=== PATIENT | female | born 1940 | race Caucasian/White ===

== ENCOUNTER 2017-02-09 09:53 | Emergency (ER) | payer MEDICARE, BC ==
[2017-02-09] MEDS ORDERED: SODIUM CHLORIDE 0.9% 1,000 ML IV ONE (10:09)
[2017-02-09 10:33] LABS: Basophils % (A) 0 %; CH 30.9; CHCM 33.6; Eosinophils # (A) 0.1 k/uL (0-0.7); Eosinophils % (A) 1 %; HCT 27.5 % (34.0-46.0); HGB 8.9 gm/dL (11.4-16.0); Luc # (Auto) 0.17; Luc % (Auto) 2; Lymphocytes % (A) 9 %; MCH 29.9 pg (25.0-35.0); MCHC 32.4 g/dL (31.0-37.0); MCV 92.4 fL (80.0-100.0); Mean Platelet Volume 8.5; Monocytes # (A) 0.6 k/uL (0-1.0); Monocytes % (A) 5 %; Neutrophils # (A) 9.5 k/uL (1.3-7.7); Neutrophils % (A) 83 %; RBC 2.97 m/uL (3.80-5.40); WBC 11.4 k/uL (3.8-10.6); WBC (Perox) 11.81
--- NOTE | 2017-02-09 10:43 | ED ---
General Adult HPI - General Chief complaint: Altered Mental Status Stated complaint: Altered Mental/A-Fib Time Seen by Provider: 02/09/17 10:09 Source: patient, family, EMS, RN notes reviewed Mode of arrival: EMS - History of Present Illness Initial comments: 76 yo female presents with acute confusion and generalized weakness. Patient is postoperative mitral and aortic valve repair as well as repair of aortic aneurysm. This was approximately 8 days ago. Patient was discharged in stable condition, she's been taking Tylenol for pain. Only past medical history prior to this surgery was hypertension. Patient has been more confused, does complain of a mild headache. The symptoms began this morning. There is no complaint of focal weakness. No vomiting or diarrhea. Patient has had some nausea since the surgery. All she was in the hospital she did have an episode of delirium. This resolved. This was several days ago. Patient has no new chest pain. No abdominal pain. No history of fever. Patient is alert and oriented at the time my evaluation. She does remember the events of the past week although is somewhat slow to respond. - Related Data Home Medications Medication Instructions Recorded Confirmed Atenolol [Tenormin] 25 mg PO BID 12/07/13 10/30/15 Aspirin EC [Ecotrin] 81 mg PO DAILY 10/30/15 10/30/15 amLODIPine [Norvasc] 2.5 mg PO DAILY 10/30/15 10/30/15 Previous Rx's Medication Instructions Recorded Ibuprofen [Motrin] 600 mg PO Q8HR #30 tab 10/30/15 traMADol HCl [Ultram] 100 mg PO Q6H PRN #30 tab 10/30/15 Allergies Allergy/AdvReac Type Severity Reaction Status Date / Time milk AdvReac Cough Verified 02/09/17 10:01 dairy AdvReac Cough Uncoded 02/09/17 10:01 Review of Systems ROS Statement: Those systems with pertinent positive or pertinent negative responses have been documented in the HPI. ROS Other: All systems not noted in ROS Statement are negative. Past Medical History Past Medical History: Hypertension Additional Past Medical History / Comment(s): gout, typhoid fever when 5 years old, arthritis, polyps History of Any Multi-Drug Resistant Organisms: None Reported Past Surgical History: Appendectomy Additional Past Surgical History / Comment(s): bunion removed, mitral and aortic valve repair and ascending aorta repair on 02/01/17. Past Anesthesia/Blood Transfusion Reactions: No Reported Reaction Past Psychological History: No Psychological Hx Reported Smoking Status: Never smoker Past Alcohol Use History: None Reported Past Drug Use History: None Reported - Past Family History Mother Family Medical History: Cancer (Renal cancer ), Coronary Artery Disease (CAD) Additional Family Medical History / Comment(s): stomach CA, heart problems Father Family Medical History: CVA/TIA Additional Family Medical History / Comment(s): of a CVA Brother(s) Family Medical History: Cancer (GI) Sister(s) Family Medical History: Cancer (GI) General Exam General appearance: alert, in no apparent distress Head exam: Present: atraumatic, normocephalic Eye exam: Present: normal appearance, PERRL ENT exam: Present: normal exam, mucous membranes moist Neck exam: Present: normal inspection. Absent: tenderness, meningismus Respiratory exam: Present: normal lung sounds bilaterally. Absent: respiratory distress Cardiovascular Exam: Present: regular rate, irregular rhythm GI/Abdominal exam: Present: soft. Absent: distended, tenderness Extremities exam: Present: normal inspection, normal capillary refill. Absent: pedal edema Neurological exam: Present: alert, oriented X3, CN II-XII intact. Absent: motor sensory deficit Psychiatric exam: Present: normal affect, normal mood Skin exam: Present: warm, dry, intact. Absent: cyanosis, diaphoretic Course Vital Signs 02/09/17 02/09/17 10:01 11:11 Temperature 99.4 F Pulse Rate 93 82 Respiratory 18 18 Rate Blood Pressure 136/92 131/60 O2 Sat by Pulse 98 99 Oximetry EKG Findings - EKG Comments: EKG Findings:: EKG shows sinus rhythm with PACs is a pattern of bigeminy, ventricular rate 88, NH interval 190, QRS duration 82, QTC 486 Medical Decision Making - Medical Decision Making 76 yo female presenting with episode of confusion. This does seem to be resolved at this time. Patient received head CT showed old right lacunar infarct, no acute findings. Chest x-ray shows right pleural effusion which could to the patient's family was previous at the time of discharge. Laboratory studies reveal hemoglobin of 8.9 which is stable. His baseline 8.8. Mild elevation in white blood cell count 11. No signs of urinary tract infection. Troponin is elevated which is likely postsurgical. EKG shows sinus rhythm with premature atrial complexes consistent with bigeminy. Neurologic examination is nonfocal. These findings were discussed with the patient and her family at length. They would prefer to be transferred to [facility]. I do feel this patient will benefit from a neurology consult and MRI. Patient's cardiothoracic surgeon is Dr. Douglass, Cardiology Dr. Guillen Diagnosis: Altered mental status. - Lab Data Result diagrams: 02/09/17 10:05 02/09/17 10:05 Lab Results 02/09/17 02/09/17 02/09/17 Range/Units 10:05 10:05 10:05 WBC 11.4 H (3.8-10.6) k/uL RBC 2.97 L (3.80-5.40) m/uL Hgb 8.9 L (11.4-16.0) gm/dL Hct 27.5 L (34.0-46.0) % MCV 92.4 (80.0-100.0) fL MCH 29.9 (25.0-35.0) pg MCHC 32.4 (31.0-37.0) g/dL RDW 15.0 (11.5-15.5) % Plt Count 165 (150-450) k/uL Neutrophils % 83 % Lymphocytes % 9 % Monocytes % 5 % Eosinophils % 1 % Basophils % 0 % Neutrophils # 9.5 H (1.3-7.7) k/uL Lymphocytes # 1.0 (1.0-4.8) k/uL Monocytes # 0.6 (0-1.0) k/uL Eosinophils # 0.1 (0-0.7) k/uL Basophils # 0.0 (0-0.2) k/uL PT (9.0-12.0) sec INR (<1.2) APTT (22.0-30.0) sec Sodium (137-145) mmol/L Potassium (3.5-5.1) mmol/L Chloride (98-107) mmol/L Carbon Dioxide (22-30) mmol/L Anion Gap mmol/L BUN (7-17) mg/dL Creatinine (0.52-1.04) mg/dL Est GFR (MDRD) Af Amer (>60 ml/min/1.73 sqM) Est GFR (MDRD) Non-Af (>60 ml/min/1.73 sqM) Glucose (74-99) mg/dL Calcium (8.4-10.2) mg/dL Total Bilirubin (0.2-1.3) mg/dL AST (14-36) U/L ALT (9-52) U/L Alkaline Phosphatase (38-126) U/L Ammonia 13 (<30) umol/L Total Creatine Kinase 37 (30-135) U/L CK-MB (CK-2) 1.0 (0.0-2.4) ng/mL CK-MB (CK-2) Rel Index 2.7 Troponin I 0.313 H* (0.000-0.034) ng/mL Total Protein (6.3-8.2) g/dL Albumin (3.5-5.0) g/dL TSH (0.465-4.680) mIU/L Urine Color Urine Appearance (Clear) Urine pH (5.0-8.0) Ur Specific [place] (1.001-1.035) Urine Protein (Negative) Urine Glucose (UA) (Negative) Urine Ketones (Negative) Urine Blood (Negative) Urine Nitrite (Negative) Urine Bilirubin (Negative) Urine Urobilinogen (<2.0) mg/dL Ur Leukocyte Esterase (Negative) Urine RBC (0-5) /hpf Urine WBC (0-5) /hpf Ur Squamous Epith Cells (0-4) /hpf Urine Bacteria (None) /hpf Urine Mucus (None) /hpf Urine Opiates Screen (NotDetected) Ur Oxycodone Screen (NotDetected) Urine Methadone Screen (NotDetected) Ur Propoxyphene Screen (NotDetected) Ur Barbiturates Screen (NotDetected) U Tricyclic Antidepress (NotDetected) Ur Phencyclidine Scrn (NotDetected) Ur Amphetamines Screen (NotDetected) U Methamphetamines Scrn (NotDetected) U Benzodiazepines Scrn (NotDetected) Urine Cocaine Screen (NotDetected) U Marijuana (THC) Screen (NotDetected) 02/09/17 02/09/17 02/09/17 Range/Units 10:05 10:05 10:30 WBC (3.8-10.6) k/uL RBC (3.80-5.40) m/uL Hgb (11.4-16.0) gm/dL Hct (34.0-46.0) % MCV (80.0-100.0) fL MCH (25.0-35.0) pg MCHC (31.0-37.0) g/dL RDW (11.5-15.5) % Plt Count (150-450) k/uL Neutrophils % % Lymphocytes % % Monocytes % % Eosinophils % % Basophils % % Neutrophils # (1.3-7.7) k/uL Lymphocytes # (1.0-4.8) k/uL Monocytes # (0-1.0) k/uL Eosinophils # (0-0.7) k/uL Basophils # (0-0.2) k/uL PT 10.9 (9.0-12.0) sec INR 1.1 (<1.2) APTT 20.0 L (22.0-30.0) sec Sodium 138 (137-145) mmol/L Potassium 4.3 (3.5-5.1) mmol/L Chloride 105 (98-107) mmol/L Carbon Dioxide 22 (22-30) mmol/L Anion Gap 11 mmol/L BUN 22 H (7-17) mg/dL Creatinine 0.83 (0.52-1.04) mg/dL Est GFR (MDRD) Af Amer >60 (>60 ml/min/1.73 sqM) Est GFR (MDRD) Non-Af >60 (>60 ml/min/1.73 sqM) Glucose 100 H (74-99) mg/dL Calcium 8.7 (8.4-10.2) mg/dL Total Bilirubin 0.7 (0.2-1.3) mg/dL AST 23 (14-36) U/L ALT 39 (9-52) U/L Alkaline Phosphatase 79 (38-126) U/L Ammonia (<30) umol/L Total Creatine Kinase (30-135) U/L CK-MB (CK-2) (0.0-2.4) ng/mL CK-MB (CK-2) Rel Index Troponin I (0.000-0.034) ng/mL Total Protein 5.7 L (6.3-8.2) g/dL Albumin 3.1 L (3.5-5.0) g/dL TSH 3.290 (0.465-4.680) mIU/L Urine Color Yellow Urine Appearance Clear (Clear) Urine pH 7.0 (5.0-8.0) Ur Specific [place] 1.010 (1.001-1.035) Urine Protein Negative (Negative) Urine Glucose (UA) Negative (Negative) Urine Ketones Negative (Negative) Urine Blood Negative (Negative) Urine Nitrite Negative (Negative) Urine Bilirubin Negative (Negative) Urine Urobilinogen <2.0 (<2.0) mg/dL Ur Leukocyte Esterase Trace H (Negative) Urine RBC 1 (0-5) /hpf Urine WBC 2 (0-5) /hpf Ur Squamous Epith Cells 2 (0-4) /hpf Urine Bacteria Rare H (None) /hpf Urine Mucus Rare H (None) /hpf Urine Opiates Screen Not Detected (NotDetected) Ur Oxycodone Screen Not Detected (NotDetected) Urine Methadone Screen Not Detected (NotDetected) Ur Propoxyphene Screen Not Detected (NotDetected) Ur Barbiturates Screen Not Detected (NotDetected) U Tricyclic Antidepress Not Detected (NotDetected) Ur Phencyclidine Scrn Not Detected (NotDetected) Ur Amphetamines Screen Not Detected (NotDetected) U Methamphetamines Scrn Not Detected (NotDetected) U Benzodiazepines Scrn Not Detected (NotDetected) Urine Cocaine Screen Not Detected (NotDetected) U Marijuana (THC) Screen Not Detected (NotDetected) Disposition Clinical Impression: Altered mental status Disposition: OTHER INSTITUTION NOT DEFINED Condition: Stable Instructions: Altered Mental Status (ED) Referrals: Tracey Zelaya MD [Primary Care Provider] - 1-2 days Time of Disposition: 11:50 - Out of Hospital Transfer - Req. Specs Out of Hospital Transfer - Requested Specifics: Other Non-Acute ([facility] )
[2017-02-09 10:49] LABS: INR 1.1 (<1.2); Prothrombin Time 10.9 sec (9.0-12.0)
[2017-02-09 10:55] LABS: Appearance,Urine Clear (Clear); Bacteria,Urine Rare /hpf; Bilirubin,Urine Negative (Negative); Glucose,Urine (UA) Negative (Negative); Ketones,Urine Negative (Negative); Leukocyte Esterase,Urine Trace (Negative); Mucus,Urine Rare /hpf; Nitrite,Urine Negative (Negative); Particle Count 3767; Protein,Urine Negative (Negative); RBC,Urine 1 /hpf (0-5); Squamous Epithelial Cell,Urine 2 /hpf (0-4); UA Billing (MACRO vs. MICRO) MICRO; Urobilinogen,Urine <2.0 mg/dL (<2.0); WBC,Urine 2 /hpf (0-5)
[2017-02-09 11:09] LABS: ALT 39 U/L (9-52); AST 23 U/L (14-36); Alkaline Phosphatase 79 U/L (38-126); Anion Gap 11 mmol/L; Blood Urea Nitrogen 22 mg/dL (7-17); Calcium 8.7 mg/dL (8.4-10.2); Carbon Dioxide 22 mmol/L (22-30); Chloride 105 mmol/L (98-107); Glucose 100 mg/dL (74-99); Non-African American GFR(MDRD) >60 (>60 ml/min/1.73 sqM); Potassium 4.3 mmol/L (3.5-5.1); Sodium 138 mmol/L (137-145); Total Bilirubin 0.7 mg/dL (0.2-1.3); Total Protein 5.7 g/dL (6.3-8.2)
[2017-02-09 11:22] LABS: Troponin I 0.313 ng/mL (0.000-0.034)
--- NOTE | 2017-02-09 11:30 | CT ---
EXAMINATION TYPE: CT brain wo con DATE OF EXAM: 02/09/2017 COMPARISON: NONE HISTORY: Altered mental status-s/p open heart surgery CT DLP: 974.6 mGycm Automated exposure control for dose reduction was used. FINDINGS: There are mild, generalized changes of sulcal prominence and ventriculomegaly, compatible with atroph ic change. There is diffuse periventricular white matter lucency, compatible with chronic white matte r ischemic change. There is evidence of previous lacunar infarct in the external capsule on the right . No other focal lesion, mass effect or midline shift is seen. I do not see evidence of intracranial blood. Visualized portions of the paranasal sinuses and mastoids are clear. No depressed skull fracture is s een. IMPRESSION: 1. NO ACUTE INTRACRANIAL ABNORMALITY. 2. OLD LACKMAN IN THE EXTERNAL CAPSULE ON THE RIGHT. 3. ATROPHIC CHANGE. 4. CHRONIC WHITE MATTER ISCHEMIC CHANGE.
--- NOTE | 2017-02-09 11:38 | XR ---
EXAMINATION TYPE: XR chest 2V DATE OF EXAM: 02/09/2017 HISTORY: altered mental status. REFERENCE: NONE. FINDINGS: There is a right-sided pleural reaction. There is right basilar airspace disease. Heart siz e is obscured but appears mildly enlarged. There has been a midline sternotomy. IMPRESSION: 1. POSTSURGICAL CHANGE. 2. CARDIOMEGALY. 3. RIGHT-SIDED EFFUSION. 4. RIGHT BASILAR AIRSPACE DISEASE.
[2017-02-09 12:20] VITALS: BP 130/69; PULSE 82; RESP 16; TEMP 99.3
[2017-02-09] MEDS ORDERED: MAG HYDROX/AL HYDROX/SIMETH 30 ML, HYOSCYAMINE ELIXIR 10 ML, CIMETIDINE HCL 300 MG PO STA ×3 (12:36)
[2017-02-09 13:09] LABS: Glucose,Whole Blood 96 mg/dL (75-99)
== END 2017-02-09 12:53 | disposition short-term general hospital (02) ==
LOC: EC 09:53
DX: R41.82 Altered mental status, unspecified (principal); J90 Pleural effusion, not elsewhere classified; D72.829 Elevated white blood cell count, unspecified; R74.8 Abnormal levels of other serum enzymes; I49.1 Atrial premature depolarization; I10 Essential (primary) hypertension; M19.90 Unspecified osteoarthritis, unspecified site; Z86.73 Personal history of transient ischemic attack (TIA), and cerebral infarction without residual deficits; Z91.011 Allergy to milk products; Z98.890 Other specified postprocedural states; Z79.82 Long term (current) use of aspirin; Z79.899 Other long term (current) drug therapy
CPT/HCPCS: 36415; 70450; 71020; 80053; 80306; 81001; 82140; 82550; 82553; 84443; 84484; 85025; 85610; 85730; 87040; 87077; 87086; 87186; 93005; 99285

== ENCOUNTER 2017-04-28 20:05 | Observation (INO) | payer MEDICARE, BC ==
[2017-04-28] MEDS ORDERED: SODIUM CHLORIDE 0.9% 1,000 ML IV STA (20:39)
--- NOTE | 2017-04-28 20:42 | ED ---
SOB HPI - General Chief Complaint: Shortness of Breath Stated Complaint: SOB/Vomiting/Heart hx Time Seen by Provider: 04/28/17 20:20 Source: patient Mode of arrival: ambulatory Limitations: no limitations - History of Present Illness Initial Comments: This is a 76-year-old female with a history of congestive heart failure cardiac stents one to valve replacement who is had continuous shortness of breath since her surgery and February 01 but over last today she's yet increased shortness of breath and now has had 3 episodes nausea and vomiting with some abdominal distention. She denies any fevers chills or sweats not coughing up any phlegm. She does normally have a 25% ejection fraction per family. She did take extra Lasix without resolution today. No chest pain or abdominal pain is reported. MD Complaint: shortness of breath - Related Data Home Medications Medication Instructions Recorded Confirmed Acetaminophen Tab [Tylenol Tab] 325 mg PO Q4H PRN 02/09/17 04/28/17 L.acidoph,Paracasei, B.lactis 1 cap PO BID 02/09/17 04/28/17 [Probiotic] Multivitamins, Thera [Multivitamin 1 tab PO DAILY 02/09/17 04/28/17 (formulary)] Aspirin [Adult Low Dose Aspirin EC] 81 mg PO HS 04/28/17 04/28/17 Clopidogrel [Plavix] 75 mg PO DAILY 04/28/17 04/28/17 Losartan [Cozaar] 25 mg PO DAILY 04/28/17 04/28/17 Pravastatin Sodium [Pravachol] 10 mg PO HS 04/28/17 04/28/17 Allergies Allergy/AdvReac Type Severity Reaction Status Date / Time atorvastatin [From Lipitor] AdvReac SORE JOINTS Verified 04/28/17 20:40 milk AdvReac Cough Verified 04/28/17 20:40 dairy AdvReac Cough Uncoded 04/28/17 20:21 Review of Systems ROS Statement: Those systems with pertinent positive or pertinent negative responses have been documented in the HPI. ROS Other: All systems not noted in ROS Statement are negative. Past Medical History Past Medical History: CVA/TIA, Hypertension Additional Past Medical History / Comment(s): gout, typhoid fever when 5 years old, arthritis, polyps, Mitral valve replacement. Aortic Anuresym, Cardiac Stent. 25% Ejection FX. CHF History of Any Multi-Drug Resistant Organisms: None Reported Past Surgical History: Appendectomy Additional Past Surgical History / Comment(s): bunion removed, mitral and aortic valve repair and ascending aorta repair on 02/01/17. Past Anesthesia/Blood Transfusion Reactions: No Reported Reaction Past Psychological History: No Psychological Hx Reported Smoking Status: Never smoker Past Alcohol Use History: None Reported Past Drug Use History: None Reported - Past Family History Mother Family Medical History: Cancer (Renal cancer ), Coronary Artery Disease (CAD) Additional Family Medical History / Comment(s): stomach CA, heart problems Father Family Medical History: CVA/TIA Additional Family Medical History / Comment(s): of a CVA Brother(s) Family Medical History: Cancer (GI) Sister(s) Family Medical History: Cancer (GI) General Exam - General Exam Comments Initial Comments: This is a well-developed well-nourished awake alert oriented 3 female Limitations: no limitations General appearance: alert, in no apparent distress Head exam: Present: atraumatic, normocephalic, normal inspection Eye exam: Present: normal appearance, PERRL, EOMI. Absent: scleral icterus, conjunctival injection, periorbital swelling ENT exam: Present: normal exam, mucous membranes moist Neck exam: Present: normal inspection. Absent: tenderness, meningismus, lymphadenopathy Respiratory exam: Present: decreased breath sounds. Absent: respiratory distress, wheezes, rales, rhonchi, stridor Cardiovascular Exam: Present: normal rhythm, tachycardia, normal heart sounds. Absent: systolic murmur, diastolic murmur, rubs, gallop, clicks GI/Abdominal exam: Present: soft, normal bowel sounds. Absent: distended, tenderness, guarding, rebound, rigid Extremities exam: Present: normal inspection, full ROM, normal capillary refill. Absent: tenderness, pedal edema, joint swelling, calf tenderness Back exam: Present: normal inspection Neurological exam: Present: alert, oriented X3, CN II-XII intact Psychiatric exam: Present: normal affect, normal mood Skin exam: Present: warm, dry, intact, normal color. Absent: rash Course Vital Signs 04/28/17 04/28/17 04/28/17 20:13 21:37 22:08 Temperature 97.3 F L Pulse Rate 103 H 96 95 Respiratory 24 20 18 Rate Blood Pressure 132/71 133/85 114/75 O2 Sat by Pulse 95 98 98 Oximetry 04/28/17 22:54 Temperature Pulse Rate 94 Respiratory 20 Rate Blood Pressure 126/80 O2 Sat by Pulse 99 Oximetry - Reevaluation(s) Reevaluation #1: 04/28/17 20:46 EKG is compared with one dated 02/09/17 no changes in configuration. Medical Decision Making - Medical Decision Making I did reevaluate patient several occasions she is feeling somewhat better I did discuss findings with the patient and her daughter who is present also with another daughter on the phone. Patient will be admitted for evaluation for CHF/ dyspnea. - Lab Data Result diagrams: 04/28/17 17:30 04/28/17 17:30 Lab Results 04/28/17 04/28/17 04/28/17 Range/Units 17:30 17:30 17:30 WBC 6.9 (3.8-10.6) k/uL RBC 4.40 (3.80-5.40) m/uL Hgb 11.9 (11.4-16.0) gm/dL Hct 37.3 (34.0-46.0) % MCV 84.8 (80.0-100.0) fL MCH 27.1 (25.0-35.0) pg MCHC 32.0 (31.0-37.0) g/dL RDW 14.7 (11.5-15.5) % Plt Count 126 L (150-450) k/uL Neutrophils % 82 % Lymphocytes % 13 % Monocytes % 4 % Eosinophils % 1 % Basophils % 0 % Neutrophils # 5.7 (1.3-7.7) k/uL Lymphocytes # 0.9 L (1.0-4.8) k/uL Monocytes # 0.3 (0-1.0) k/uL Eosinophils # 0.1 (0-0.7) k/uL Basophils # 0.0 (0-0.2) k/uL PT (9.0-12.0) sec INR (<1.2) APTT (22.0-30.0) sec Sodium 141 (137-145) mmol/L Potassium 4.8 (3.5-5.1) mmol/L Chloride 107 (98-107) mmol/L Carbon Dioxide 20 L (22-30) mmol/L Anion Gap 14 mmol/L BUN 17 (7-17) mg/dL Creatinine 1.00 (0.52-1.04) mg/dL Est GFR (MDRD) Af Amer >60 (>60 ml/min/1.73 sqM) Est GFR (MDRD) Non-Af 54 (>60 ml/min/1.73 sqM) Glucose 156 H (74-99) mg/dL Calcium 9.8 (8.4-10.2) mg/dL Magnesium 1.9 (1.6-2.3) mg/dL Total Bilirubin 0.7 (0.2-1.3) mg/dL AST 75 H (14-36) U/L ALT 84 H (9-52) U/L Alkaline Phosphatase 94 (38-126) U/L Total Creatine Kinase 41 (30-135) U/L CK-MB (CK-2) 1.0 (0.0-2.4) ng/mL CK-MB (CK-2) Rel Index 2.4 Troponin I <0.012 (0.000-0.034) ng/mL NT-Pro-B Natriuret Pep pg/mL Total Protein 7.0 (6.3-8.2) g/dL Albumin 4.2 (3.5-5.0) g/dL Amylase 46 (30-110) U/L Lipase 91 (23-300) U/L Urine Color Urine Appearance (Clear) Urine pH (5.0-8.0) Ur Specific [place] (1.001-1.035) Urine Protein (Negative) Urine Glucose (UA) (Negative) Urine Ketones (Negative) Urine Blood (Negative) Urine Nitrite (Negative) Urine Bilirubin (Negative) Urine Urobilinogen (<2.0) mg/dL Ur Leukocyte Esterase (Negative) Urine RBC (0-5) /hpf Urine WBC (0-5) /hpf Ur Squamous Epith Cells (0-4) /hpf Urine Bacteria (None) /hpf Hyaline Casts (0-2) /lpf Urine Mucus (None) /hpf 04/28/17 04/28/17 04/28/17 Range/Units 17:30 17:30 17:30 WBC (3.8-10.6) k/uL RBC (3.80-5.40) m/uL Hgb (11.4-16.0) gm/dL Hct (34.0-46.0) % MCV (80.0-100.0) fL MCH (25.0-35.0) pg MCHC (31.0-37.0) g/dL RDW (11.5-15.5) % Plt Count (150-450) k/uL Neutrophils % % Lymphocytes % % Monocytes % % Eosinophils % % Basophils % % Neutrophils # (1.3-7.7) k/uL Lymphocytes # (1.0-4.8) k/uL Monocytes # (0-1.0) k/uL Eosinophils # (0-0.7) k/uL Basophils # (0-0.2) k/uL PT 11.3 (9.0-12.0) sec INR 1.2 H (<1.2) APTT 22.2 (22.0-30.0) sec Sodium (137-145) mmol/L Potassium (3.5-5.1) mmol/L Chloride (98-107) mmol/L Carbon Dioxide (22-30) mmol/L Anion Gap mmol/L BUN (7-17) mg/dL Creatinine (0.52-1.04) mg/dL Est GFR (MDRD) Af Amer (>60 ml/min/1.73 sqM) Est GFR (MDRD) Non-Af (>60 ml/min/1.73 sqM) Glucose (74-99) mg/dL Calcium (8.4-10.2) mg/dL Magnesium (1.6-2.3) mg/dL Total Bilirubin (0.2-1.3) mg/dL AST (14-36) U/L ALT (9-52) U/L Alkaline Phosphatase (38-126) U/L Total Creatine Kinase (30-135) U/L CK-MB (CK-2) (0.0-2.4) ng/mL CK-MB (CK-2) Rel Index Troponin I (0.000-0.034) ng/mL NT-Pro-B Natriuret Pep 7680 pg/mL Total Protein (6.3-8.2) g/dL Albumin (3.5-5.0) g/dL Amylase (30-110) U/L Lipase (23-300) U/L Urine Color Yellow Urine Appearance Cloudy H (Clear) Urine pH 6.5 (5.0-8.0) Ur Specific [place] 1.015 (1.001-1.035) Urine Protein 2+ H (Negative) Urine Glucose (UA) Negative (Negative) Urine Ketones Negative (Negative) Urine Blood Negative (Negative) Urine Nitrite Negative (Negative) Urine Bilirubin Negative (Negative) Urine Urobilinogen <2.0 (<2.0) mg/dL Ur Leukocyte Esterase Large H (Negative) Urine RBC 1 (0-5) /hpf Urine WBC 18 H (0-5) /hpf Ur Squamous Epith Cells 5 H (0-4) /hpf Urine Bacteria Occasional H (None) /hpf Hyaline Casts 8 H (0-2) /lpf Urine Mucus Occasional H (None) /hpf - EKG Data -: EKG Interpreted by Fl EKG shows normal: sinus rhythm (Sinus tachycardia with a rate of 108 appear interval 158 QRS duration 100 QT/QTC of 340/466 evidence a left exodeviation old septal changes nonspecific ST-T wave configuration.) - Radiology Data Radiology results: report reviewed (X-ray shows no definite acute findings.), image reviewed Critical Care Time Critical Care Time: Yes Critical Care Time: 31 minutes of critical care time which includes initial presentation with history physical labs x-rays reevaluation patient response to therapy discuss with the patient family members. Discussion with the admitting physician admission orders and documentation of the above. Disposition Clinical Impression: Congestive heart failure, Dyspnea Disposition: ADMITTED IP TO THIS [facility] Condition: Stable Referrals: Tracey Zelaya MD [Primary Care Provider] - 1-2 days
[2017-04-28 21:04] LABS: Basophils % (A) 0 %; CH 27.2; CHCM 32.2; Eosinophils # (A) 0.1 k/uL (0-0.7); Eosinophils % (A) 1 %; HCT 37.3 % (34.0-46.0); HDW 2.93; HGB 11.9 gm/dL (11.4-16.0); Luc # (Auto) 0.04; Luc % (Auto) 1; Lymphocytes # (A) 0.9 k/uL (1.0-4.8); Lymphocytes % (A) 13 %; MCH 27.1 pg (25.0-35.0); MCV 84.8 fL (80.0-100.0); Mean Platelet Volume 8.5; Monocytes # (A) 0.3 k/uL (0-1.0); Monocytes % (A) 4 %; Neutrophils # (A) 5.7 k/uL (1.3-7.7); Neutrophils % (A) 82 %; RDW 14.7 % (11.5-15.5); WBC 6.9 k/uL (3.8-10.6); WBC (Perox) 7.29
[2017-04-28 21:05] LABS: Appearance,Urine Cloudy (Clear); Bacteria,Urine Occasional /hpf; Bilirubin,Urine Negative (Negative); Glucose,Urine (UA) Negative (Negative); Ketones,Urine Negative (Negative); Leukocyte Esterase,Urine Large (Negative); Mucus,Urine Occasional /hpf; Nitrite,Urine Negative (Negative); PH, Urine 6.5 (5.0-8.0); Particle Count 8662; Protein,Urine 2+ (Negative); RBC,Urine 1 /hpf (0-5); Specific Gravity,Urine 1.015 (1.001-1.035); Squamous Epithelial Cell,Urine 5 /hpf (0-4); UA Billing (MACRO vs. MICRO) MICRO; Urobilinogen,Urine <2.0 mg/dL (<2.0); WBC,Urine 18 /hpf (0-5)
[2017-04-28 21:10] LABS: INR 1.2 (<1.2); Prothrombin Time 11.3 sec (9.0-12.0)
--- NOTE | 2017-04-28 21:15 | XR ---
EXAMINATION TYPE: XR abdomen 1V DATE OF EXAM: 04/28/2017 9:08 PM CLINICAL HISTORY: Shortness of breath and vomiting TECHNIQUE: Single supine KUB image of the abdomen is obtained. COMPARISON: None. FINDINGS: Scattered gas is seen in non-distended small bowel loops. Gas and fecal material is seen in non-distended colon. No gross evidence of visceromegaly. The lung bases are clear and the osseous st ructures are intact. Moderate degenerative changes of the femoral acetabular joints are seen Mild dex troscoliotic curvature of the thoracic spine is noted. Atheromatous changes of the splenic artery and left renal artery are present. Overlying wires reside in the left upper quadrant, extraneous to the patient. IMPRESSION: Nonobstructive bowel gas pattern.
[2017-04-28 21:17] LABS: Partial Thromboplastin Time 22.2 sec (22.0-30.0)
[2017-04-28 21:18] LABS: ALT 84 U/L (9-52); AST 75 U/L (14-36); Alkaline Phosphatase 94 U/L (38-126); Amylase 46 U/L (30-110); Anion Gap 14 mmol/L; Blood Urea Nitrogen 17 mg/dL (7-17); Calcium 9.8 mg/dL (8.4-10.2); Carbon Dioxide 20 mmol/L (22-30); Chloride 107 mmol/L (98-107); Glucose 156 mg/dL (74-99); Magnesium 1.9 mg/dL (1.6-2.3); Non-African American GFR(MDRD) 54 (>60 ml/min/1.73 sqM); Potassium 4.8 mmol/L (3.5-5.1); Sodium 141 mmol/L (137-145); Total Bilirubin 0.7 mg/dL (0.2-1.3)
--- NOTE | 2017-04-28 21:18 | XR ---
EXAMINATION TYPE: XR chest 2V DATE OF EXAM: 04/28/2017 COMPARISON: NONE HISTORY: Shortness of breath and chest pain. TECHNIQUE: Frontal and lateral views of the chest are obtained. FINDINGS: There is chronic right hemidiaphragm elevation and 8 similar-appearing trace pleural effus ion in comparison to the exam of 02/16/2017. Interstitial prominence is unchanged from the prior exam and accentuated by rotation. Cardiac silhouette is enlarged. Post-CABG changes are seen. Mild multile gina degenerative changes of thoracic spine and right acromioclavicular joint are noted. IMPRESSION: No new focal consolidation. Chronic right hemidiaphragm elevation and trace right pleura l effusion.
[2017-04-28 21:28] LABS: Creatine Kinase 41 U/L (30-135)
[2017-04-28] MEDS ORDERED: ONDANSETRON 4 MG/2 ML VIAL IVP STA (21:33)
[2017-04-28 21:41] LABS: Troponin I <0.012 ng/mL (0.000-0.034)
[2017-04-28] MEDS ORDERED: FUROSEMIDE 10 MG/ML 4 ML VIAL IV STA (21:41)
[2017-04-28] MEDS: SODIUM CHLORIDE 0.9% 1,000 ML IV SCH (23:49)
[2017-04-29 00:04] VITALS: BMI 21.1
[2017-04-29] MEDS: FUROSEMIDE 10 MG/ML 4 ML VIAL IV SCH ×3 (00:25→15:47)
[2017-04-29] MEDS: ACETAMINOPHEN TAB 325 MG TAB PO PRN ×2 (06:06→15:46)
[2017-04-29] MEDS: LACTOBACILLUS ACIDOPH & BULGAR 1 EACH PACKET PO SCH ×2 (07:16→21:13)
[2017-04-29] MEDS: MULTIVITAMINS, THERA 1 EACH TAB PO SCH (07:17)
[2017-04-29] MEDS: NITROGLYCERIN OINT 1 INCH/GM PACKET TOPICAL SCH ×2 (07:22→12:55)
[2017-04-29] MEDS: LOSARTAN 25 MG TAB PO SCH (07:26)
[2017-04-29] MEDS: CLOPIDOGREL 75 MG TAB PO SCH (08:04)
[2017-04-29] MEDS: ENOXAPARIN 40 MG/0.4 ML SYRINGE SQ SCH (12:55)
[2017-04-29] MEDS: SPIRONOLACTONE 25 MG TAB PO SCH (17:05)
--- NOTE | 2017-04-29 18:07 | HP ---
HISTORY AND PHYSICAL DATE OF ADMISSION: 04/28/17 PRESENTING COMPLAINT: Short of breath. HISTORY OF PRESENTING COMPLAINT: A very pleasant, 76 -year-old patient of Dr. Zelaya. Chronic stable medical conditions include hypertension, gout, coronary artery disease with stent. The patient has a history of a mitral valve replacement and ascending aortic repair on January 01, 2017 by cardiothoracic surgeon, at [facility]. The patient also follows with Dr. Fuentes spring fitter out of the same system. Ejection fraction is noted to be about 25%. Since the surgery, patient has had 2 to 3 episodes of shortness of breath and medications were adjusted. The patient yet again presents with 3 days of increasing shortness of breath. Minimal cough. No fever. There is no edema, questionable orthopnea. The patient's son is at the bedside. The patient did get IV Lasix in the ER to which she feels better. REVIEW OF SYSTEMS: Review of systems done for constitutional tired. HEENT none. Respiratory as above. Cardiovascular as above. Gastrointestinal none. Genitourinary none. Musculoskeletal none. Dermatological none. Hematologic none. Lymphatics none. Psychiatry none. Neurological none. PAST MEDICAL HISTORY: Past medical history of congestive heart failure EF 25%, stroke, hypertension, gout, mitral valve replacement, ascending aortic repair, cardiac cath with stent. PAST SURGICAL HISTORY: Appendectomy, hernia, triple mitral aortic valve repair, ascending aorta repair, cardiac cath with stent. SOCIAL HISTORY: The patient is a smoker in the remote past. Lives by herself. FAMILY HISTORY: Coronary artery disease, stomach cancer. HOME MEDICATIONS: 1. Aspirin 81 mg q.h.s. 2. Pravachol 10 mg q.h.s. 3. Multivitamin 1 tab p.o. daily. 4. Probiotic 1 capsule p.o. b.i.d. 5. Cozaar 25 mg p.o. daily. 6. Plavix 75 mg p.o. daily. 7. Tylenol 325 p.o. q.4 p.r.n. ALLERGIES: LIPITOR, MILK, DAIRY. PHYSICAL EXAMINATION: Vital signs on presentation: Temperature 97.3, pulse 103, respiratory 24, blood pressure 130/71, pulse ox 95% on room air. General appearance: Average built, sitting up, not in distress. Eyes pupils equal. Conjunctivae normal. HEENT: Oral cavity normal. Neck JVD not raised. Mass not palpable. Respiratory effort normal. Lungs fair entry. Cardiovascular first and second sounds normal. No edema. ABDOMEN: Soft, nontender. Liver and spleen not palpable. Lymphatics: No lymph nodes palpable in the neck and axillae. Psychiatry: Alert and oriented times three. Mood and affect normal. Neurological: Pupils equal. Cranial nerves grossly intact. Power and sensation grossly intact. INVESTIGATIONS: White count 6.9, hemoglobin 11.9, potassium 4.8, BUN creatinine is normal. ProBNP 7680. UA positive leuko esterase, WBC is positive for squamous epithelial cells. Chest x-ray shows venous prominence. ProBNP is 7680. ASSESSMENT: 1. Acute on chronic congestive heart failure exacerbation from systolic dysfunction EF 25% from underlying coronary artery disease. 2. Coronary artery disease prior history of stent. 3. History of mitral valve replacement and ascending aortic repair. 4. Essential hypertension. 5. Chronic gout. 6. Asymptomatic bacteriuria. PLAN: Keep the patient on IV Lasix. We will add Aldactone. We will add Aldactone 12.5 p.o. daily. The patient is already on Cozaar. We will do a 2-D echocardiogram. I do not see Lasix in the patient's home medication dose. Will clarify the same. Care was discussed with the patient and son who is at the bedside. Copy to Dr. Zelaya. CORNELIO / ELINA: [id number] /
[2017-04-29] MEDS ORDERED: ASPIRIN 81 MG PO SCH (21:00)
[2017-04-29] MEDS ORDERED: PRAVASTATIN SODIUM 20 MG TAB PO SCH (21:00)
[2017-04-29 21:12] VITALS: TEMP 97.9
[2017-04-30] MEDS: FUROSEMIDE 10 MG/ML 4 ML VIAL IV SCH ×2 (00:15→08:30)
[2017-04-30] MEDS: SODIUM CHLORIDE 0.9% 1,000 ML IV SCH (00:20)
[2017-04-30] MEDS: ENOXAPARIN 40 MG/0.4 ML SYRINGE SQ SCH (08:31)
[2017-04-30] MEDS: LOSARTAN 25 MG TAB PO SCH (08:31)
[2017-04-30] MEDS: SPIRONOLACTONE 25 MG TAB PO SCH (08:31)
[2017-04-30] MEDS: LACTOBACILLUS ACIDOPH & BULGAR 1 EACH PACKET PO SCH (08:32)
[2017-04-30] MEDS: CLOPIDOGREL 75 MG TAB PO SCH (08:32)
[2017-04-30] MEDS: MULTIVITAMINS, THERA 1 EACH TAB PO SCH (08:32)
[2017-04-30 08:38] LABS: Calcium 9.9 mg/dL (8.4-10.2); Potassium 4.3 mmol/L (3.5-5.1)
[2017-04-30 08:39] VITALS: BP 119/73; PULSE 104; RESP 18
--- NOTE | 2017-04-30 10:51 | ECHOF ---
Referral Reason:chf MEASUREMENTS -------- HEIGHT: 165.1 cm WEIGHT: 61.2 kg BP: 105/61 RVIDd: 2.2 cm (< 3.3) IVSd: 1.2 cm (0.6 - 1.1) LVIDd: 4.2 cm (3.9 - 5.3) LVPWd: 1.2 cm (0.6 - 1.1) IVSs: 1.3 cm LVIDs: 4.0 cm LVPWs: 1.6 cm LA Diam: 4.0 cm (2.7 - 3.8) LAESV Index (A-L): 35.07 ml/m Ao Diam: 3.5 cm (2.0 - 3.7) AV Cusp: 1.3 cm (1.5 - 2.6) MV EXCURSION: 7.592 mm (> 18.000) MV EF SLOPE: 37 mm/s (70 - 150) EPSS: 1.9 cm MV E Demarco: 1.22 m/s MV DecT: 184 ms MV A Demarco: 1.22 m/s MV E/A Ratio: 1.00 AR PHT: 1097 ms RAP: 5.00 mmHg RVSP: 30.73 mmHg FINDINGS -------- Sinus rhythm. This was a technically good study. The left ventricular size is normal. There is borderline concentric left ventricular hypertrophy. Overall left ventricular systolic function is severely impaired with, an EF between 20 - 25 %. The right ventricle is normal in size and function. Paradoxical motion of the right ventricular sep alma rosa is consistent with post operative status. LA is moderately dilated 34-39 ml/m2 The right atrium is normal in size. There is mild aortic valve sclerosis. There is mild aortic regurgitation. The mitral valve leaflets are mildly thickened. Mild mitral annular calcification present. Mild m itral regurgitation is present. Mitral ring annulloplasty is in place. MV Repair. Mild tricuspid regurgitation present. Right ventricular systolic pressure is normal at < 35 mmHg. There is no pulmonic regurgitation present. The aortic root size is normal. Normal inferior vena cava with normal inspiratory collapse consistent with estimated right atrial pre ssure of 5 mmHg. There is no pericardial effusion. CONCLUSIONS -------- 1. Sinus rhythm. 2. This was a technically good study. 3. The left ventricular size is normal. 4. There is borderline concentric left ventricular hypertrophy. 5. The right ventricle is normal in size and function. 6. Paradoxical motion of the right ventricular septum is consistent with post operative status. 7. LA is moderately dilated 34-39 ml/m2 8. The right atrium is normal in size. 9. There is mild aortic valve sclerosis. 10. There is mild aortic regurgitation. 11. The mitral valve leaflets are mildly thickened. 12. Mild mitral annular calcification present. 13. Mild mitral regurgitation is present. 14. Mitral ring annulloplasty is in place. 15. MV Repair. 16. Mild tricuspid regurgitation present. 17. Right ventricular systolic pressure is normal at < 35 mmHg. 18. There is no pulmonic regurgitation present. 19. The aortic root size is normal. 20. Normal inferior vena cava with normal inspiratory collapse consistent with estimated right atrial pressure of 5 mmHg. 21. There is no pericardial effusion. REGIONAL DRIVER: Sarai Aguirre RDCS
[2017-04-30] MEDS ORDERED: METOPROLOL SUCCINATE (ER) 50 MG TAB.ER.24H PO SCH (13:15)
--- NOTE | 2017-04-30 13:31 | P.CRDCN ---
History of Present Illness Consult date: 04/30/17 History of present illness: Mrs. Patel is a pleasant 76-year-old female with past medical history significant for systolic heart failure, CAD with CABG, hypertension, mitral valve repair, aortic aneurysm repair and former tobacco use. She follows with cardiovascular surgery out of [facility]. Her CABG was in January of this year. We have been asked to see her in consultation for complaints of extreme shortness of breath. She states since Saturday of last week she has been extremely short of breath with a sensation of drowning. She denies lower extremity edema but states she typically swells in her abdomen. Complains also of orthopnea and PND with the inability to get comfortable in any position. She denies chest pain, palpitations, diaphoresis, nausea or vomiting. She states she has had this a few times since having surgery. She received IV lasix in ED and has been receiving 20 mg IV q8 since admission. At the time of my exam she is sitting up on the edge of the bed in no acute distress. She states she feels much better and has been up ambulating in the halls without shortness of breath. EKG on arrival reveals sinus tachycardia with rate 108 with evidence of old septal infarct as well as lateral ST depression. This is consistent with old EKG 's. Chest xray reveals no new focal consolidation with chronic right hemidiaphragm elevation and trace right pleural effusion. Laboratory date reviewed, hgb 11.9, plt 126, INR 1.2, potassium 4.3, magnesium 1.9, BUN 23, Cr 1.31, cardiac enzymes negative x3, proBNP on admission 7680 with repeat this morning 2230. e Current cardiac medications include Toprol 50 mg daily, potassium chloride 20 MEQ every other day, Lasix 20 mg twice a day, aspirin 81 mg daily, losartan 25 mg daily and Plavix 75 mg daily. Review of Systems At the time of my exam: CONSTITUTIONAL: Denies fever. Denies chills. EYES: Denies blurred vision. Denies vision changes. Denies eye pain. EARS, NOSE, MOUTH & THROAT: Denies headache. Denies sore throat. Denies ear pain. CARDIOVASCULAR: Denies chest pain. Denies shortness of breath. Denies orthopnea. Denies PND. Denies palpitations. RESPIRATORY: Denies cough. GASTROINTESTINAL: Denies abdominal pain. Denies diarrhea. Denies constipation. Denies nausea. Denies vomiting. MUSCULOSKELETAL: Denies myalgias. INTEGUMENTARY: Denies pruitis. Denies rash. NEUROLOGIC: Denies numbness. Denies tingling. Denies weakness. PSYCHIATRIC: Denies anxiety. Denies depression. ENDOCRINE: Denies fatigue. Denies weight change. Denies polydipsia. Denies polyurina. GENITOURINARY: Denies burning, hematuria or urgency with micturation. HEMATOLOGIC: Denies history of anemia. Denies bleeding. Past Medical History Past Medical History: Heart Failure, CVA/TIA, Hypertension Additional Past Medical History / Comment(s): gout, typhoid fever when 5 years old, arthritis, polyps, Mitral valve replacement, Aortic Anuresym, Cardiac Stent ,. EF - 25% History of Any Multi-Drug Resistant Organisms: None Reported Past Surgical History: Appendectomy Additional Past Surgical History / Comment(s): bunion removed, mitral and aortic valve repair and ascending aorta repair on 02/01/17, heart cath with one stent. Past Anesthesia/Blood Transfusion Reactions: No Reported Reaction Past Psychological History: No Psychological Hx Reported Smoking Status: Former smoker Past Alcohol Use History: None Reported Past Drug Use History: None Reported - Past Family History Mother Family Medical History: Cancer, Coronary Artery Disease (CAD) Additional Family Medical History / Comment(s): stomach CA, heart problems Father Family Medical History: CVA/TIA Additional Family Medical History / Comment(s): of a CVA Brother(s) Family Medical History: Cancer Sister(s) Family Medical History: Cancer Medications and Allergies Home Medications Medication Instructions Recorded Confirmed Type Acetaminophen Tab [Tylenol Tab] 325 mg PO Q4H PRN 02/09/17 04/28/17 History L.acidoph,Paracasei, B.lactis 1 cap PO BID 02/09/17 04/28/17 History [Probiotic] Multivitamins, Thera [Multivitamin 1 tab PO DAILY 02/09/17 04/28/17 History (formulary)] Aspirin [Adult Low Dose Aspirin EC] 81 mg PO HS 04/28/17 04/28/17 History Clopidogrel [Plavix] 75 mg PO DAILY 04/28/17 04/28/17 History Losartan [Cozaar] 25 mg PO DAILY 04/28/17 04/28/17 History Furosemide [Lasix] 20 mg PO BID MDD 20mg 04/29/17 04/30/17 History Potassium Chloride [Klor-Con 20] 20 meq PO Q48H 04/29/17 04/30/17 History Colchicine [Colcrys] 0.6 mg DAILY PRN 04/30/17 04/30/17 History Metoprolol Succinate (ER) [Toprol 1 tab PO BID 04/30/17 04/30/17 History XL] Allergies Allergy/AdvReac Type Severity Reaction Status Date / Time atorvastatin [From Lipitor] AdvReac SORE JOINTS Verified 04/28/17 20:40 milk AdvReac Cough Verified 04/28/17 20:40 dairy AdvReac Cough Uncoded 04/28/17 20:21 Physical Exam Vitals: Vital Signs Temp Pulse Resp BP Pulse Ox 04/30/17 07:00 97.9 F 104 H 18 119/73 93 L 04/29/17 21:11 97.9 F 100 16 119/75 95 04/29/17 16:00 20 04/29/17 15:00 97.8 F 95 18 104/61 94 L Intake and Output 04/29/17 04/30/17 04/30/17 22:59 06:59 14:59 Other: Voiding Method Toilet # Voids 1 1 Weight 57.606 kg 59.5 kg GENERAL: This is a 76-year-old female in no apparent distress at the time of my examination. HEENT: Head is atraumatic, normocephalic. Pupils are equal, round. Sclerae anicteric. Conjunctivae are clear. Mucous membranes of the mouth are moist. Neck is supple. There is no jugular venous distention. No carotid bruit is heard. LUNGS: Clear to auscultation no wheezes, rales or rhonchi. No chest wall tenderness is noted on palpation or with deep breathing. HEART: Regular rate and rhythm without murmurs, rubs or gallops. S1 and S2 heard. ABDOMEN: Soft, nontender. Bowel sounds are heard. No organomegaly noted. EXTREMITIES: 2+ peripheral pulses with no evidence of peripheral edema and no calf tenderness noted. NEUROLOGIC: Patient is awake, alert and oriented x3. Results 04/28/17 17:30 04/30/17 07:23 Cardiac Enzymes 04/29/17 Range/Units 11:02 Troponin I <0.012 (0.000-0.034) ng/mL Comprehensive Metabolic Panel 04/30/17 Range/Units 07:23 Sodium 140 (137-145) mmol/L Potassium 4.3 (3.5-5.1) mmol/L Chloride 102 (98-107) mmol/L Carbon Dioxide 25 (22-30) mmol/L BUN 23 H (7-17) mg/dL Creatinine 1.31 H (0.52-1.04) mg/dL Glucose 105 H (74-99) mg/dL Calcium 9.9 (8.4-10.2) mg/dL Current Medications Generic Name Dose Route Start Last Admin Trade Name Freq PRN Reason Stop Dose Admin Acetaminophen 325 mg 04/28/17 23:08 04/29/17 15:46 Tylenol Tab PO 325 mg Q4H PRN Administration Pain or Fever > 100.5 Aspirin 81 mg 04/29/17 21:00 04/29/17 21:12 Aspirin PO 81 mg HS FREDERIC Administration Clopidogrel Bisulfate 75 mg 04/29/17 09:00 04/30/17 08:32 Plavix PO 75 mg DAILY FREDERIC Administration Enoxaparin Sodium 40 mg 04/29/17 12:00 04/30/17 08:31 Lovenox SQ 40 mg DAILY FREDERIC Administration Furosemide 20 mg 04/28/17 23:15 04/30/17 08:30 Lasix IV 20 mg Q8H FREDERIC Administration Sodium Chloride 1,000 mls @ 20 mls/hr 04/28/17 23:15 04/30/17 00:20 Saline 0.9% IV Not Given .Q24H FREDERIC Lactobacillus Acidoph/Bulgaricus 1 each 04/29/17 09:00 04/30/17 08:32 Lactinex PO 1 each BID FREDERIC Administration Losartan Potassium 25 mg 04/29/17 09:00 04/30/17 08:31 Cozaar PO 25 mg DAILY FREDERIC Administration Multivitamins 1 each 04/29/17 09:00 04/30/17 08:32 Theragran PO 1 each DAILY FREDERIC Administration Pravastatin Sodium 10 mg 04/29/17 21:00 04/29/17 21:12 Pravachol PO 10 mg HS FREDERIC Administration Spironolactone 12.5 mg 04/29/17 16:00 04/30/17 08:31 Aldactone PO 12.5 mg DAILY FREDERIC Administration Intake and Output 04/29/17 04/30/17 04/30/17 22:59 06:59 14:59 Other: Voiding Method Toilet # Voids 1 1 Weight 57.606 kg 59.5 kg 04/28/17 17:30 04/30/17 07:23 Assessment and Plan Assessment: ASSESSMENT 1. Acute on chronic exacerbation of systolic heart failure, EF 20-25%. She states this is her baseline since surgery in January. 2. CAD with subsequent CABG 3. History of mitral valve repair 4. Essential hypertension 5. History of aortic aneurysm repair PLAN Mrs. Patel looks very well on exam. She was apparently much worse off with breathing yesterday and has diuresed nicely on IV lasix. She can be transitioned to oral diuretics at this time. We recommend that she go home on spironolactone daily. As well as taking Lasix 40 mg daily the morning. She is scheduled for to [place] on Saturday for a visit with her family and we have suggested she call and follow up with her primary clinical instructor prior to leaving. From cardiac perspective she is stable. Nurse Practitioner note has been reviewed, I agree with a documented findings and plan of care. Patient was seen and examined.
[2017-05-01] MEDS ORDERED: SPIRONOLACTONE 25 MG TAB PO SCH (09:00)
[2017-05-01] MEDS ORDERED: FUROSEMIDE 40 MG TAB PO SCH (09:00)
--- NOTE | 2017-05-01 22:21 | DS ---
DISCHARGE SUMMARY FINAL DIAGNOSES: 1. Acute on chronic congestive heart failure exacerbation from systolic dysfunction EF 25% underlying coronary artery disease. 2. Coronary artery disease with prior history of stent. 3. History of mitral valve replacement and ascending aorta repair. 4. Essential hypertension. 5. Chronic gout. 6. Asymptomatic bacteriuria. HOSPITAL COURSE: This patient presented with CHF exacerbation. EF came back to be 20-25%. Responded well to diuresis. EXAMINATION: Lungs are clear. Cardiovascular 1st and second sounds normal. The patient's BUN and creatinine by the time of discharge was 23/4.31. CONSULTATION: Dr. Manuela Chamberlain. DISCHARGE MEDICATIONS: 1. Tylenol 325 p.o. q.4 p.r.n. 2. Probiotic 1 capsule p.o. b.i.d. 3. Multivitamin 1 tab p.o. daily. 4. Aspirin 81 mg q.h.s. 5. Plavix 75 mg p.o. daily. 6. Potassium 20 mEq p.o. q.48 hours. 7. Colchicine 0.6 mg p.o. daily p.r.n. 8. Lasix 40 mg p.o. daily. 9. Cozaar 25 mg q.h.s. 10.Toprol-XL 1 tab p.o. b.i.d. 11.Aldactone 25 mg p.o. daily. Follow up with assignment agent in 1 week. Tracey Zelaya in 3 days. Labs and BMP in 3 days. MMODL / IJN: [id number] /
== END 2017-04-30 15:50 | disposition home or self-care (01) ==
LOC: EC 20:05 → 5MS5E 23:09
PROVIDERS: ADMIT Hospitalist; ATTEND Hospitalist
DX: I11.0 Hypertensive heart disease with heart failure (principal); I50.23 Acute on chronic systolic (congestive) heart failure; Z95.5 Presence of coronary angioplasty implant and graft; Z95.2 Presence of prosthetic heart valve; I25.10 Atherosclerotic heart disease of native coronary artery without angina pectoris; M1A.9XX0 Chronic gout, unspecified, without tophus (tophi); R82.71 Bacteriuria; R11.2 Nausea with vomiting, unspecified; R14.0 Abdominal distension (gaseous); Z79.82 Long term (current) use of aspirin; Z79.899 Other long term (current) drug therapy; Z88.8 Allergy status to other drugs, medicaments and biological substances; Z91.011 Allergy to milk products; Z86.73 Personal history of transient ischemic attack (TIA), and cerebral infarction without residual deficits; M19.90 Unspecified osteoarthritis, unspecified site; Z80.0 Family history of malignant neoplasm of digestive organs; Z82.3 Family history of stroke; Z87.891 Personal history of nicotine dependence; Z79.02 Long term (current) use of antithrombotics/antiplatelets; Z95.1 Presence of aortocoronary bypass graft
CPT/HCPCS: 99291; 96374; 96375 ×2; 96376 ×2; 96372 ×2; 36415; 93005; 93306; 83880 ×2; 80053; 80048; 82150; 82550; 82553; 83690; 83735; 84484 ×2; 85025; 85610; 85730; 81001; 71020; 74000; G0378 ×3; J1940 ×3; J2405; J1650 ×2

== ENCOUNTER 2017-12-10 09:52 | Outpatient (CLI) | payer MEDICARE, BC | END 2017-12-10 10:00 | disposition home or self-care (01) | LOC: PTMAIN 09:52 | PROVIDERS: ATTEND Otolaryngology | DX: K21.9 Gastro-esophageal reflux disease without esophagitis (principal) | CPT/HCPCS: 31579 ==

== ENCOUNTER → 2018-11-08 | Outpatient (CLI) | payer MEDICARE, BC ==
[2018-11-08 11:03] LABS: Basophils % (A) 0 %; Eosinophils # (A) 0.2 k/uL (0-0.7); Eosinophils % (A) 3 %; HCT 37.5 % (34.0-46.0); HGB 12.4 gm/dL (11.4-16.0); Lymphocytes % (A) 28 %; MCH 29.7 pg (25.0-35.0); MCHC 33.1 g/dL (31.0-37.0); MCV 89.6 fL (80.0-100.0); Mean Platelet Volume 8.9; Monocytes # (A) 0.3 k/uL (0-1.0); Monocytes % (A) 4 %; Neutrophils # (A) 4.3 k/uL (1.3-7.7); Neutrophils % (A) 62 %; Platelet Count 131 k/uL (150-450); RBC 4.18 m/uL (3.80-5.40); RDW 13.3 % (11.5-15.5); WBC 6.9 k/uL (3.8-10.6)
[2018-11-08 15:58] LABS: African American GFR (CKD) 35.4 (60.0-200.0); Anion Gap 9.3 mmol/L (4.00-12.00); BUN/Creat Ratio 18.75 Ratio (12.00-20.00); Calcium 9.7 mg/dL (8.7-10.3); Carbon Dioxide 24.7 mmol/L (21.6-31.8); LDL Cholesterol,Calculated 113.8 mg/dL (0.0-131.0); VLDL Calculation 70.2 mg/dL (5.00-40.00)
[2018-11-08 19:12] LABS: Hemoglobin A1C 6.1 % (4.0-6.0)
== END | disposition home or self-care (01) ==
LOC: LABWHC1 10:40
PROVIDERS: ATTEND Family Medicine
DX: I10 Essential (primary) hypertension (principal); R73.01 Impaired fasting glucose; R79.89 Other specified abnormal findings of blood chemistry; E78.5 Hyperlipidemia, unspecified
CPT/HCPCS: 36415; 80048; 80061; 83036; 85025

== ENCOUNTER → 2018-11-25 | Outpatient (CLI) | payer MEDICARE, BC ==
[2018-11-25 19:59] LABS: African American GFR (CKD) 38.3 (60.0-200.0); Anion Gap 10.7 mmol/L (4.00-12.00); BUN/Creat Ratio 21.33 Ratio (12.00-20.00); Calcium 9.8 mg/dL (8.7-10.3); Carbon Dioxide 26.3 mmol/L (21.6-31.8); Potassium 4.5 mmol/L (3.5-5.5)
== END | disposition home or self-care (01) ==
LOC: LABWHC1 13:33
PROVIDERS: ATTEND Family Medicine
DX: N18.3 Chronic kidney disease, stage 3 (moderate) (principal)
CPT/HCPCS: 36415; 80048

== ENCOUNTER → 2018-12-10 | Outpatient (CLI) | payer MEDICARE, BC ==
--- NOTE | 2018-12-11 10:19 | MM ---
Reason for exam: screening (asymptomatic). Last mammogram was performed 7 years and 9 months ago. History: Patient is postmenopausal. Benign stereotactic core biopsy of the right breast, November 08, 1999. Cyst aspiration of the right breast. 3 core biopsies of the right breast. Physical Findings: A clinical breast exam by your physician is recommended on an annual basis and results should be correlated with mammographic findings. MG 3D Screening Mammo W/Cad Bilateral CC and MLO view(s) were taken. Prior study comparison: March 22, 2011, bilateral digital screening mammo w/CAD. February 11, 2009, bilateral digital screening mammogram. The breast tissue is heterogeneously dense. This may lower the sensitivity of mammography. Benign appearing bilateral calcifications. No suspicious abnormality. No significant changes when compared with prior studies. ASSESSMENT: Benign, BI-RAD 2 RECOMMENDATION: Routine screening mammogram of both breasts in 1 year.
== END | disposition home or self-care (01) ==
LOC: RADMAMWWP 16:30
PROVIDERS: ATTEND Family Medicine
DX: Z12.31 Encounter for screening mammogram for malignant neoplasm of breast (principal)
CPT/HCPCS: 77063; 77067

== ENCOUNTER 2020-02-19 14:29 | Observation (INO) | payer MEDICARE, BC ==
[2020-02-19] MEDS ORDERED: SODIUM CHLORIDE 0.9% 500 ML 500 ML IV STA (15:16)
--- NOTE | 2020-02-19 15:20 | ED ---
General Adult HPI - General Chief complaint: Dizziness Stated complaint: L Shoulder Pain Time Seen by Provider: 02/19/20 14:59 Source: patient, RN notes reviewed Mode of arrival: ambulatory Limitations: no limitations - History of Present Illness Initial comments: 76 her old female with a past medical history of heart failure, coronary artery disease with CABG, hypertension, mitral valve repair, aortic aneurysm repair presents to the emergency room for a chief complaint of chest pain. Patient states that she has had chest pain on and off for a few weeks. Patient reports that today she had 2 episodes of chest pain both lasting a few seconds each at a scale of 3 out of 10. States it was a dull chest pain in the left side of the chest near the shoulder. Patient denies any shortness of breath, nausea, or diaphoresis with this. She does admit to some lightheadedness this morning but did not coincide with the chest pain. At this time patient reports she is pain- free. Patient states she has an MRI of her aorta every year about appears norm al.Patient has no other complaints at this time including shortness of breath, abdominal pain, nausea or vomiting, headache, or visual changes. - Related Data Home Medications Medication Instructions Recorded Confirmed Acetaminophen Tab [Tylenol] 325 mg PO Q4H PRN 02/09/17 04/28/17 L.acidoph,Paracasei, B.lactis 1 cap PO BID 02/09/17 04/28/17 [Probiotic] Multivitamins, Thera [Multivitamin 1 tab PO DAILY 02/09/17 04/28/17 (formulary)] Aspirin [Adult Low Dose Aspirin EC] 81 mg PO HS 04/28/17 04/28/17 Clopidogrel [Plavix] 75 mg PO DAILY 04/28/17 04/28/17 Potassium Chloride [Klor-Con 20] 20 meq PO Q48H 04/29/17 04/30/17 Colchicine [Colcrys] 0.6 mg DAILY PRN 04/30/17 04/30/17 Metoprolol Succinate (ER) [Toprol 1 tab PO BID 04/30/17 04/30/17 XL] Previous Rx's Medication Instructions Recorded Furosemide [Lasix] 40 mg PO DAILY #0 MDD 20mg 04/30/17 Losartan [Cozaar] 25 mg PO HS #0 04/30/17 Spironolactone [Aldactone] 25 mg PO DAILY #30 tab 04/30/17 Allergies Allergy/AdvReac Type Severity Reaction Status Date / Time atorvastatin [From Lipitor] AdvReac SORE JOINTS Verified 02/19/20 14:34 milk AdvReac Cough Verified 02/19/20 14:34 dairy AdvReac Cough Uncoded 04/28/17 20:21 Review of Systems ROS Statement: Those systems with pertinent positive or pertinent negative responses have been documented in the HPI. ROS Other: All systems not noted in ROS Statement are negative. Past Medical History Past Medical History: Heart Failure, CVA/TIA, Hypertension Additional Past Medical History / Comment(s): gout, typhoid fever when 5 years old, arthritis, polyps, Mitral valve replacement, Aortic Anuresym, Cardiac Stent,. EF - 25% History of Any Multi-Drug Resistant Organisms: None Reported Past Surgical History: Appendectomy Additional Past Surgical History / Comment(s): bunion removed, mitral and aortic valve repair and ascending aorta repair on 02/01/17, heart cath with one stent. Past Anesthesia/Blood Transfusion Reactions: No Reported Reaction Past Psychological History: No Psychological Hx Reported Smoking Status: Former smoker Past Alcohol Use History: None Reported Past Drug Use History: None Reported - Past Family History Mother Family Medical History: Cancer, Coronary Artery Disease (CAD) Additional Family Medical History / Comment(s): stomach CA, heart problems Father Family Medical History: CVA/TIA Additional Family Medical History / Comment(s): of a CVA Brother(s) Family Medical History: Cancer Sister(s) Family Medical History: Cancer General Exam Limitations: no limitations General appearance: alert, in no apparent distress Head exam: Present: atraumatic, normocephalic, normal inspection Eye exam: Present: normal appearance ENT exam: Present: normal exam, mucous membranes moist Neck exam: Present: normal inspection, full ROM. Absent: tenderness, meningismus, lymphadenopathy Respiratory exam: Present: normal lung sounds bilaterally. Absent: respiratory distress, wheezes, rales, rhonchi, stridor Cardiovascular Exam: Present: regular rate, normal rhythm, normal heart sounds. Absent: systolic murmur, diastolic murmur, rubs, gallop, clicks GI/Abdominal exam: Present: soft, normal bowel sounds. Absent: distended, tenderness, guarding, rebound, rigid Extremities exam: Present: normal capillary refill (Capillary refill, radial pulse 2+ in upper extremity bilaterally) Course Vital Signs 02/19/20 02/19/20 14:35 16:45 Temperature 98.0 F 98.1 F Pulse Rate 86 70 Respiratory 18 18 Rate Blood Pressure 158/86 O2 Sat by Pulse 99 Oximetry EKG Findings - EKG Comments: EKG Findings:: Normal sinus rhythm, ventricular rate 77, RI int 172, QTc 463, compared to previous EKG from 04/28/2017 Medical Decision Making - Medical Decision Making Vitals are stable. CBC is unremarkable. A CMP does show evidence of slight elevation of creatinine. Troponin is negative. EKG shows a normal sinus rhythm with LVH which patient does have a history of it appears. Chest x-ray shows chronic changes without acute pulmonary process. Patient is pain-free at this time. However given history patient will be admitted for cardiology consultat ion. Troponin will be trended. - Lab Data Result diagrams: 02/19/20 15:32 02/19/20 15:32 Lab Results 02/19/20 02/19/20 02/19/20 Range/Units 15:32 15:32 15:32 WBC 7.5 (3.8-10.6) k/uL RBC 4.68 (3.80-5.40) m/uL Hgb 13.7 (11.4-16.0) gm/dL Hct 41.7 (34.0-46.0) % MCV 89.1 (80.0-100.0) fL MCH 29.4 (25.0-35.0) pg MCHC 33.0 (31.0-37.0) g/dL RDW 13.1 (11.5-15.5) % Plt Count 143 L (150-450) k/uL Neutrophils % 67 % Lymphocytes % 23 % Monocytes % 6 % Eosinophils % 2 % Basophils % 1 % Neutrophils # 5.0 (1.3-7.7) k/uL Lymphocytes # 1.7 (1.0-4.8) k/uL Monocytes # 0.5 (0-1.0) k/uL Eosinophils # 0.2 (0-0.7) k/uL Basophils # 0.1 (0-0.2) k/uL PT 10.0 (9.0-12.0) sec INR 1.0 (<1.2) APTT 24.8 (22.0-30.0) sec Sodium 137 (137-145) mmol/L Potassium 4.6 (3.5-5.1) mmol/L Chloride 104 (98-107) mmol/L Carbon Dioxide 23 (22-30) mmol/L Anion Gap 10 mmol/L BUN 18 H (7-17) mg/dL Creatinine 1.36 H (0.52-1.04) mg/dL Est GFR (CKD-EPI)AfAm 43 (>60 ml/min/1.73 sqM) Est GFR (CKD-EPI)NonAf 37 (>60 ml/min/1.73 sqM) Glucose 92 (74-99) mg/dL Calcium 10.3 H (8.4-10.2) mg/dL Magnesium 1.9 (1.6-2.3) mg/dL Total Bilirubin 0.7 (0.2-1.3) mg/dL AST 33 (14-36) U/L ALT 18 (4-34) U/L Alkaline Phosphatase 97 (38-126) U/L Troponin I (0.000-0.034) ng/mL NT-Pro-B Natriuret Pep pg/mL Total Protein 8.2 (6.3-8.2) g/dL Albumin 5.0 (3.5-5.0) g/dL Lipase 150 (23-300) U/L 02/19/20 02/19/20 Range/Units 15:32 15:32 WBC (3.8-10.6) k/uL RBC (3.80-5.40) m/uL Hgb (11.4-16.0) gm/dL Hct (34.0-46.0) % MCV (80.0-100.0) fL MCH (25.0-35.0) pg MCHC (31.0-37.0) g/dL RDW (11.5-15.5) % Plt Count (150-450) k/uL Neutrophils % % Lymphocytes % % Monocytes % % Eosinophils % % Basophils % % Neutrophils # (1.3-7.7) k/uL Lymphocytes # (1.0-4.8) k/uL Monocytes # (0-1.0) k/uL Eosinophils # (0-0.7) k/uL Basophils # (0-0.2) k/uL PT (9.0-12.0) sec INR (<1.2) APTT (22.0-30.0) sec Sodium (137-145) mmol/L Potassium (3.5-5.1) mmol/L Chloride (98-107) mmol/L Carbon Dioxide (22-30) mmol/L Anion Gap mmol/L BUN (7-17) mg/dL Creatinine (0.52-1.04) mg/dL Est GFR (CKD-EPI)AfAm (>60 ml/min/1.73 sqM) Est GFR (CKD-EPI)NonAf (>60 ml/min/1.73 sqM) Glucose (74-99) mg/dL Calcium (8.4-10.2) mg/dL Magnesium (1.6-2.3) mg/dL Total Bilirubin (0.2-1.3) mg/dL AST (14-36) U/L ALT (4-34) U/L Alkaline Phosphatase (38-126) U/L Troponin I <0.012 (0.000-0.034) ng/mL NT-Pro-B Natriuret Pep 218 pg/mL Total Protein (6.3-8.2) g/dL Albumin (3.5-5.0) g/dL Lipase (23-300) U/L Disposition Clinical Impression: Chest pain Disposition: HOME SELF-CARE Condition: Good Is patient prescribed a controlled substance at d/c from ED?: No Referrals: Tracey Zelaya MD [Primary Care Provider] - 1-2 days Time of Disposition: 16:48
[2020-02-19 15:44] LABS: Basophils # (A) 0.1 k/uL (0-0.2); Basophils % (A) 1 %; Eosinophils # (A) 0.2 k/uL (0-0.7); Eosinophils % (A) 2 %; HCT 41.7 % (34.0-46.0); HGB 13.7 gm/dL (11.4-16.0); Lymphocytes # (A) 1.7 k/uL (1.0-4.8); Lymphocytes % (A) 23 %; MCH 29.4 pg (25.0-35.0); MCV 89.1 fL (80.0-100.0); Mean Platelet Volume 8.5; Monocytes # (A) 0.5 k/uL (0-1.0); Monocytes % (A) 6 %; Neutrophils % (A) 67 %; Platelet Count 143 k/uL (150-450); RBC 4.68 m/uL (3.80-5.40); RDW 13.1 % (11.5-15.5); WBC 7.5 k/uL (3.8-10.6)
--- NOTE | 2020-02-19 15:48 | XR ---
EXAMINATION TYPE: XR chest 2V DATE OF EXAM: 02/19/2020 COMPARISON: Chest x-ray April 28, 2017 HISTORY: Chest pain. TECHNIQUE: Frontal and lateral views of the chest are obtained. FINDINGS: Overlie sternal wires and suspected superficial pericardial leads redemonstrated. There is chronic parenchymal change without suspicious new focal air space opacity, pleural effusion, or pneum othorax seen. The cardiac silhouette size is upper limits of normal currently with atherosclerotic a nd ectatic aorta redemonstrated. The osseous structures are intact. IMPRESSION: Chronic changes without acute pulmonary process.
[2020-02-19 15:53] LABS: Calcium 10.3 mg/dL (8.4-10.2); Magnesium 1.9 mg/dL (1.6-2.3); Potassium 4.6 mmol/L (3.5-5.1); Total Bilirubin 0.7 mg/dL (0.2-1.3); Total Protein 8.2 g/dL (6.3-8.2)
[2020-02-19 15:59] LABS: Partial Thromboplastin Time 24.8 sec (22.0-30.0)
[2020-02-19] MEDS ORDERED: ASPIRIN 81 MG PO STA (16:48)
[2020-02-19 18:48] VITALS: RESP 16
[2020-02-19] MEDS ORDERED: ACETAMINOPHEN TAB 500 MG TAB PO PRN (19:04)
[2020-02-19] MEDS ORDERED: FUROSEMIDE 40 MG TAB PO PRN (19:04)
[2020-02-19] MEDS: METOPROLOL SUCCINATE (ER) 50 MG TAB.ER.24H PO SCH (21:11)
[2020-02-20 04:16] LABS: Cholesterol 295 mg/dL (<200); HDL Cholesterol 28 mg/dL (40-60)
[2020-02-20 04:25] LABS: Triglycerides 645 mg/dL (<150)
[2020-02-20] MEDS ORDERED: MULTIVITAMINS, THERA 1 EACH TAB PO SCH (09:00)
[2020-02-20] MEDS ORDERED: SPIRONOLACTONE 25 MG TAB PO SCH (09:00)
[2020-02-20] MEDS ORDERED: allopurinoL 100 MG TAB PO SCH (09:00)
[2020-02-20] MEDS ORDERED: ASPIRIN 325 MG TAB PO SCH (09:00)
[2020-02-20] MEDS ORDERED: EZETIMIBE 10 MG TAB PO SCH (10:30)
--- NOTE | 2020-02-20 10:41 | P.CRDCN ---
History of Present Illness Consult date: 02/20/20 Requesting physician: Harpreet Acuna Reason for Consult (text): chest pain Chief complaint: chest pain History of present illness: This is a pleasant 79-year-old female patient who follows with Dr. Jung in [place]. She has a history of hypertension, hyperlipidemia, CAD, prior thoracic descending aortic aneurysm repair and mitral valve repair in January 2017, stent placement to the LAD in February 2017, cardiomyopathy with the most recent echocardiogram available showing an ejection fraction of 20-25%. According to the patient she hasn't had any cardiac workup in several years with her last stress test being prior to her surgery in 2016 and her last echocardiogram shortly following her surgery which is likely the one done here in 2017. She does get MRIs regularly to follow her ascending aortic aneurysm post repair. She has been intolerant to statins in the past due to severe joint pain and myalgias she has tried Lipitor, Zocor and Crestor. She presented to the emergency department with complaints of chest discomfort. It occurred while she was doing some housework. She said it came on slowly was a dull pain and lasted about 20 seconds. She came in after the second occurrence after discussing this with her primary care provider. EKG on admission showed sinus r hythm with poor R-wave progression, nonspecific ST-T wave abnormalities no evidence of acute ischemia and no significant change from an EKG from 2017. Troponins have been negative 3. Vital signs stable and she is afebrile. Home medications include Lasix 40 mg daily as needed, Aldactone 25 mg by mouth daily, metoprolol succinate twice daily, aspirin 81 mg by mouth daily, allopurinol 100 mg by mouth daily, multivitamin, probiotic and Tylenol as needed. Laboratory values show normal white blood cell count and normal hemoglobin, sodium 137, potassium 4.6, BUN 18, creatinine 1.36, NT proBNP 218, triglycerides 645, total cholesterol 295, HDL 28 and LDL was not calculated due to elevation of t riglycerides. Heart examination patient is resting comfortably in bed. She has no further complaints of chest discomfort. She complains of some dyspnea on exertion when she is rushing. She complains of very occasional lower extremity edema but has none recently. Complains of some mild dizziness but feels it's due to the addition of the allopurinol which is new. She denies any palpitations, diaphoresis, nausea, heartburn, orthopnea or PND. Past Medical History Past Medical History: Heart Failure, CVA/TIA, Hypertension Additional Past Medical History / Comment(s): gout, typhoid fever when 5 years old, arthritis, polyps, Mitral valve replacement, Aortic Anuresym, Cardiac Stent,. EF - 25% History of Any Multi-Drug Resistant Organisms: None Reported Past Surgical History: Appendectomy Additional Past Surgical History / Comment(s): bunion removed, mitral and aortic valve repair and ascending aorta repair on 02/01/17, heart cath with one stent. Past Anesthesia/Blood Transfusion Reactions: No Reported Reaction Past Psychological History: No Psychological Hx Reported Smoking Status: Former smoker Past Alcohol Use History: None Reported Past Drug Use History: None Reported - Past Family History Mother Family Medical History: Cancer, Coronary Artery Disease (CAD) Additional Family Medical History / Comment(s): stomach CA, heart problems Father Family Medical History: CVA/TIA Additional Family Medical History / Comment(s): of a CVA Brother(s) Family Medical History: Cancer Sister(s) Family Medical History: Cancer Medications and Allergies Home Medications Medication Instructions Recorded Confirmed Type L.acidoph,Paracasei, B.lactis 1 cap PO QAM 02/09/17 02/19/20 History [Probiotic] Multivitamins, Thera [Multivitamin 1 tab PO QAM 02/09/17 02/19/20 History (formulary)] Aspirin [Adult Low Dose Aspirin EC] 81 mg PO HS 04/28/17 02/19/20 History Metoprolol Succinate (ER) [Toprol 1 tab PO BID 04/30/17 02/19/20 History XL] Spironolactone [Aldactone] 25 mg PO DAILY #30 tab 04/30/17 02/19/20 Rx Acetaminophen Tab [Tylenol] 500 mg PO HS PRN 02/19/20 02/19/20 History Furosemide [Lasix] 40 mg PO DAILY PRN 02/19/20 02/19/20 History allopurinoL [Zyloprim] 100 mg PO DAILY 02/19/20 02/19/20 History Allergies Allergy/AdvReac Type Severity Reaction Status Date / Time atorvastatin [From Lipitor] AdvReac SORE JOINTS Verified 02/19/20 16:57 milk AdvReac Cough Verified 02/19/20 16:57 dairy AdvReac Cough Uncoded 04/28/17 20:21 Physical Exam Vitals: Vital Signs Temp Pulse Pulse Resp BP BP Pulse Ox 02/20/20 07:57 94 L 02/20/20 04:30 97.9 F 66 114/67 97 02/19/20 21:00 86 02/19/20 20:00 98.5 F 86 152/75 96 02/19/20 18:22 97.6 F 76 16 154/76 97 02/19/20 18:03 98.2 F 78 18 138/83 98 02/19/20 16:46 71 18 142/77 02/19/20 16:45 98.1 F 70 18 02/19/20 14:35 98.0 F 86 18 158/86 99 Intake and Output 02/19/20 02/20/20 02/20/20 22:59 06:59 14:59 Intake Total 700 Balance 700 Intake: Amount of Fluid Infused ( 500 ml) Oral 200 Other: Voiding Method Toilet Toilet Weight 64.864 kg PHYSICAL EXAMINATION: This is a 79-year-old female in no apparent distress at the time of my examination. VITAL SIGNS: Blood pressure 102/55, heart rate 68, respirations 16, temp 97.8F. Patient is 98 % on room air. HEENT: Head is atraumatic, normocephalic. Pupils are equal, round. Sclerae anicteric. Conjunctivae are clear. Mucous membranes of the mouth are moist. Neck is supple. There is no elevated jugular venous pressure. No carotid bruit is heard. CHEST EXAMINATION: Clear to auscultation bilaterally. No wheezes rales or rhonchi. Respirations even and nonlabored. HEART EXAMINATION: Heart regular, positive S1 and S2. No S3. No S4. With a systolic murmur. ABDOMEN: Soft, nontender. Bowel sounds are heard. No organomegaly noted. EXTREMITIES: 2+ peripheral pulses with no evidence of peripheral edema and no calf tenderness noted. NEUROLOGIC EXAMINATION: Patient is awake, alert and oriented x3. Results 02/19/20 15:32 02/19/20 15:32 Cardiac Enzymes 02/19/20 02/19/20 02/19/20 Range/Units 15:32 15:32 18:03 AST 33 (14-36) U/L Troponin I <0.012 <0.012 (0.000-0.034) ng/mL 02/19/20 Range/Units 21:53 AST (14-36) U/L Troponin I <0.012 (0.000-0.034) ng/mL Coagulation 02/19/20 Range/Units 15:32 PT 10.0 (9.0-12.0) sec APTT 24.8 (22.0-30.0) sec Lipids 02/19/20 Range/Units 15:32 Triglycerides 645 H (<150) mg/dL Cholesterol 295 H (<200) mg/dL HDL Cholesterol 28 L (40-60) mg/dL CBC 02/19/20 Range/Units 15:32 WBC 7.5 (3.8-10.6) k/uL RBC 4.68 (3.80-5.40) m/uL Hgb 13.7 (11.4-16.0) gm/dL Hct 41.7 (34.0-46.0) % Plt Count 143 L (150-450) k/uL Comprehensive Metabolic Panel 02/19/20 Range/Units 15:32 Sodium 137 (137-145) mmol/L Potassium 4.6 (3.5-5.1) mmol/L Chloride 104 (98-107) mmol/L Carbon Dioxide 23 (22-30) mmol/L BUN 18 H (7-17) mg/dL Creatinine 1.36 H (0.52-1.04) mg/dL Glucose 92 (74-99) mg/dL Calcium 10.3 H (8.4-10.2) mg/dL AST 33 (14-36) U/L ALT 18 (4-34) U/L Alkaline Phosphatase 97 (38-126) U/L Total Protein 8.2 (6.3-8.2) g/dL Albumin 5.0 (3.5-5.0) g/dL Current Medications Generic Name Dose Route Start Last Admin Trade Name Freq PRN Reason Stop Dose Admin Acetaminophen 500 mg 02/19/20 19:04 Acetaminophen Tab 500 Mg Tab PO HS PRN Headache Allopurinol 100 mg 02/20/20 09:00 Allopurinol 100 Mg Tab PO DAILY [facility] Aspirin 325 mg 02/20/20 09:00 Aspirin 325 Mg Tab PO DAILY [facility] Furosemide 40 mg 02/19/20 19:04 Furosemide 40 Mg Tab PO DAILY PRN water retention Metoprolol Succinate 50 mg 02/19/20 21:00 02/19/20 21:11 Metoprolol Succinate (Er) 50 Mg Tab.Er.24h PO 50 mg BID FREDERIC Administration Multivitamins 1 each 02/20/20 09:00 Multivitamins, Thera 1 Each Tab PO QAM FREDERIC Spironolactone 25 mg 02/20/20 09:00 Spironolactone 25 Mg Tab PO DAILY FREDERIC Intake and Output 02/19/20 02/20/20 02/20/20 22:59 06:59 14:59 Intake Total 700 Balance 700 Intake: Amount of Fluid Infused ( 500 ml) Oral 200 Other: Voiding Method Toilet Toilet Weight 64.864 kg 02/19/20 15:32 02/19/20 15:32 Assessment and Plan Assessment: #1 symptoms of chest discomfort, atypical for angina, troponin negative 3, no acute EKG changes #2 history of CAD with prior stenting to the LAD in 2017 #3 history of ascending aortic aneurysm, status post repair #4 status post mitral valve repair #5 hyperlipidemia, intolerant to statins #6 hypertension Plan: From cardiology perspective we will decrease aspirin 81 mg daily and add an GORAN inhibitor. We'll obtain a 2-D echo with Doppler to assess cardiac structure and function. Ambulate the patient and if she remains chest pain free she may be d ischarged and follow up with her PCP and Dr. Jung. HVAC SPECIALIST note has been reviewed, I agree with a documented findings and plan of care. Patient was seen and examined.
[2020-02-20] MEDS: METOPROLOL SUCCINATE (ER) 50 MG TAB.ER.24H PO SCH (10:54)
--- NOTE | 2020-02-20 16:51 | ECHOF ---
Referral Reason:chest pain MEASUREMENTS -------- HEIGHT: 165.1 cm WEIGHT: 64.9 kg BP: RVIDd: 2.2 cm (< 3.3) IVSd: 1.2 cm (0.6 - 1.1) LVIDd: 4.0 cm (3.9 - 5.3) LVPWd: 1.3 cm (0.6 - 1.1) IVSs: 2.1 cm LVIDs: 1.9 cm LVPWs: 1.9 cm LAESV Index (A-L): 25.99 ml/m Ao Diam: 3.0 cm (2.0 - 3.7) AV Cusp: 1.7 cm (1.5 - 2.6) LA Diam: 3.3 cm (2.7 - 3.8) MV EXCURSION: 7.289 mm (> 18.000) MV EF SLOPE: 16 mm/s (70 - 150) EPSS: 1.7 cm MV E Demarco: 1.16 m/s MV DecT: 452 ms MV A Demarco: 1.13 m/s MV E/A Ratio: 1.02 AR PHT: 1494 ms RAP: 5.00 mmHg RVSP: 22.27 mmHg FINDINGS -------- Sinus rhythm. This was a technically adequate study. The left ventricular size is normal. There is mild concentric left ventricular hypertrophy. Overa ll left ventricular systolic function is mildly impaired with, an EF between 45 - 50 %. The right ventricle is normal in size. Normal LA size by volume 22+/-6 ml/m2. The right atrial size is normal. The aortic valve was not well visualized. There is mild aortic regurgitation. Mild mitral regurgitation is present. The peak and mean MV gradients are 9.51mmHg 3.28mmHg as rebeka ured by doppler. MV Repair. The tricuspid valve appears structurally normal. Mild tricuspid regurgitation present. Right vent ricular systolic pressure is normal at < 35 mmHg. The pulmonic valve was not well visualized. The aortic root size is normal. Normal inferior vena cava with normal inspiratory collapse consistent with estimated right atrial pre ssure of 5 mmHg. There is no pericardial effusion. CONCLUSIONS -------- 1. The left ventricular size is normal. 2. There is mild concentric left ventricular hypertrophy. 3. Overall left ventricular systolic function is mildly impaired with, an EF between 45 - 50 %. 4. Normal LA size by volume 22+/-6 ml/m2. 5. There is mild aortic regurgitation. 6. Mild mitral regurgitation is present. 7. The peak and mean MV gradients are 9.51mmHg 3.28mmHg as measured by doppler. 8. MV Repair. 9. Mild tricuspid regurgitation present. 10. There is no pericardial effusion. GRAIN MILLER HELPER: Kaylee Clark RDCS
[2020-02-20 17:27] VITALS: BP 143/80; PULSE 74; TEMP 97
[2020-02-21] MEDS ORDERED: ASPIRIN 81 MG PO SCH (09:00)
== END 2020-02-20 17:30 | disposition home or self-care (01) ==
LOC: EC 14:29 → 3NCARDOBS 16:38
PROVIDERS: ADMIT Internal Medicine; ATTEND Internal Medicine
DX: R07.89 Other chest pain (principal); R42 Dizziness and giddiness; E78.1 Pure hyperglyceridemia; E78.5 Hyperlipidemia, unspecified; I11.0 Hypertensive heart disease with heart failure; I25.10 Atherosclerotic heart disease of native coronary artery without angina pectoris; I42.9 Cardiomyopathy, unspecified; I50.9 Heart failure, unspecified; I71.2 Thoracic aortic aneurysm, without rupture; Z79.02 Long term (current) use of antithrombotics/antiplatelets; Z79.82 Long term (current) use of aspirin; Z79.899 Other long term (current) drug therapy; Z80.0 Family history of malignant neoplasm of digestive organs; Z82.3 Family history of stroke; Z82.49 Family history of ischemic heart disease and other diseases of the circulatory system; Z86.73 Personal history of transient ischemic attack (TIA), and cerebral infarction without residual deficits; Z87.891 Personal history of nicotine dependence; Z95.1 Presence of aortocoronary bypass graft; Z95.2 Presence of prosthetic heart valve; Z95.5 Presence of coronary angioplasty implant and graft
CPT/HCPCS: 93005 ×2; 96360; 99285; 36415; 94760; 93306; 83880; 80061; 80053; 83690; 83735; 84484; 85025; 85610; 85730; 71046; G0378 ×2

== ENCOUNTER → 2023-11-11 | Outpatient (CLI) | payer MEDICARE, BC ==
[2023-11-11 09:33] LABS: Basophils % (A) 1 %; Eosinophils # (A) 0.1 k/uL (0-0.7); Eosinophils % (A) 2 %; Lymphocytes # (A) 1.1 k/uL (1.0-4.8); Lymphocytes % (A) 19 %; MCH 28.8 pg (25.0-35.0); MCV 93.1 fL (80.0-100.0); Mean Platelet Volume 9.1; Monocytes # (A) 0.3 k/uL (0-1.0); Monocytes % (A) 6 %; Neutrophils # (A) 4.1 k/uL (1.3-7.7); Neutrophils % (A) 71 %; Platelet Count 139 k/uL (150-450); RBC 4.52 m/uL (3.80-5.40); RDW 13.9 % (11.5-15.5); WBC 5.8 k/uL (3.8-10.6)
[2023-11-11 16:04] LABS: ALT 13 U/L (8-44); AST 19 U/L (13-35); Albumin 4.5 g/dL (3.8-4.9); Alkaline Phosphatase 98 U/L (41-126); BUN/Creat Ratio 15.91 Ratio (12.00-20.00); Bilirubin, Conjugated <0.20 mg/dL (0.20-0.40); Bilirubin,Unconjugated >0.10 mg/dL (0.20-1.00); Blood Urea Nitrogen 17.5 mg/dL (9.0-27.0); Calcium 9.6 mg/dL (8.7-10.3); Carbon Dioxide 24.3 mmol/L (21.6-31.8); Chloride 106 mmol/L (96-109); Chol/HDL Ratio 6.22 Ratio; Globulin 2.5 g/dL (1.6-3.3); Glucose 118 mg/dL (70-110); LDL Cholesterol,Calculated 142.9 mg/dL (0.0-131.0); Potassium 4.4 mmol/L (3.5-5.5); Sodium 141 mmol/L (135-145); Total Bilirubin 0.3 mg/dL (0.3-1.2)
== END | disposition home or self-care (01) ==
LOC: LABWHC1 09:06
PROVIDERS: ATTEND Family Medicine
DX: I10 Essential (primary) hypertension (principal); E78.2 Mixed hyperlipidemia; R00.2 Palpitations
CPT/HCPCS: 36415; 80048; 80061; 80076; 83036; 84443; 85025